=== PATIENT | female | born 1980 | race African-American/Black ===

== ENCOUNTER 2016-12-02 08:37 | Emergency (ER) | payer MEDICARE, MEDICAID ==
[2016-12-02] MEDS ORDERED: Fentanyl 100 MCG/2 ML VIAL ONE (09:17)
[2016-12-02] MEDS ORDERED: Ondansetron ODT 4 MG TAB ONE (09:17)
== END 2016-12-02 09:30 | disposition home or self-care (01) ==
LOC: MADERS 08:37
DX: K02.9 Dental caries, unspecified (principal); E11.9 Type 2 diabetes mellitus without complications; F32.9 Major depressive disorder, single episode, unspecified
CPT/HCPCS: 96372; J3010; Q0162

== ENCOUNTER 2016-12-13 08:50 | Emergency (ER) | payer MEDICARE, MEDICAID ==
--- NOTE | 2016-12-13 09:51 | RAD ---
PORTABLE CHEST 1 VIEW: DATE: 12/13/16. TIME: 9:33 a.m. HISTORY: Pain in the feet, legs, headache, and vomiting. FINDINGS: Comparison is made with the exam of 07/07/16. There is continued elevation of the right hemidiaphragm. The heart size is normal. There is mild p rominence of the pulmonary vascularity. No lobar consolidation, pneumothorax, or large effusions ar e seen. POS: [facility]
[2016-12-13 10:13] LABS: PTT 26.8 SEC (22.9-36.1); Prothrombin Time 13.2 SEC (12.0-14.7)
[2016-12-13 10:21] LABS: Band 1 % (5-11); Hemoglobin 14.8 g/dL (12.0-16.0); Lymphocytes 39 % (21-51); MDiff Complete? YES; Mean Corpuscular HGB CONC 32.8 g/dL (32.0-36.0); Mean Corpuscular Volume 91.7 fl (81.0-99.0); Mean Platelet Volume 7.4 fL (7.4-10.4); Monocytes 6 % (0-10); Neutrophil 54 % (42-75); Platelet Count 224 thou/uL (130-400); RBC Distribution Width 12.9 % (11.5-14.5); Red Blood Cell (RBC) Count 4.92 mill/uL (4.20-5.40); White Blood Cell (WBC) Count 10.4 thou/uL (4.8-10.8)
[2016-12-13 10:24] LABS: BHCG - Serum NEGATIVE (NEGATIVE); Pregs Control Background? CLEAR/WHITE (CLR/WHITE); Pregs Control Bar Appear? YES (CONTROL BAR)
[2016-12-13 10:55] LABS: Hemoglobin A1c 9.1 % (4.0-6.0)
[2016-12-13 11:24] LABS: Bilirubin Negative (Negative); Blood, Urine Large (Negative); Clarity Clear (Clear); Glucose, Urine (Dipstick) Negative (Negative); Leukocyte Negative (Negative); Nitrite Negative (Negative); Protein, Urine (Dipstick) Negative (Neg-Trace); Urobilinogen 0.2 mg/dL (0.2-1.0); pH, Urine 5.5 (5.0-9.0)
[2016-12-13 11:33] LABS: ALT (SGPT) 7 U/L (8-55); AST (SGOT) 13 U/L (5-34); Albumin 3.9 g/dL (3.5-5.0); Alkaline Phosphatase 81 U/L (40-150); Anion Gap 16 mmol/L (10-20); BUN (Urea Nitrogen) 12 mg/dL (7.0-18.7); Bilirubin, Total Less than 0.3 mg/dL (0.2-1.2); Calc. Creatinine Clearance 0 mL/min (70-130); Calcium 9.1 mg/dL (7.8-10.44); Carbon Dioxide 26 mmol/L (22-29); Chloride 103 mmol/L (98-107); Estimated GFR-MDRD 79; Globulin 3.2 g/dL (2.4-3.5); Glucose 107 mg/dL (70-105); Potassium 4.5 mmol/L (3.5-5.1); Protein, Total 7.1 g/dL (6.0-8.3); Sodium 140 mmol/L (136-145)
[2016-12-13 11:35] LABS: RBC/HPF 0-3 HPF (0-3); Specific Gravity, Urine 1.005 (1.002-1.036)
[2016-12-13 11:35] LABS: CRP (Inflammatory) 6.63 mg/dL (= or < 0.5)
[2016-12-13 11:36] LABS: Bacteria/HPF Rare-Few HPF (None Seen); Squamous Epithelial 0-3 HPF (0-3); WBC/HPF None Seen HPF (0-3)
[2016-12-13] MEDS ORDERED: Ondansetron ODT 4 MG TAB ONE (11:52)
[2016-12-13] MEDS ORDERED: methylPREDNISolone Acetate 40 mg/ml Vial ONE (13:21)
[2016-12-13] MEDS ORDERED: Morphine Sulfate 2 MG/ML SYRINGE ONE (13:21)
== END 2016-12-13 13:30 | disposition home or self-care (01) ==
LOC: MADERS 08:50
DX: M32.14 Glomerular disease in systemic lupus erythematosus (principal); M06.9 Rheumatoid arthritis, unspecified; E11.9 Type 2 diabetes mellitus without complications; F32.9 Major depressive disorder, single episode, unspecified; Z79.891 Long term (current) use of opiate analgesic; Z79.899 Other long term (current) drug therapy
CPT/HCPCS: 36415; 71010; 80053; 81001; 82150; 83036; 83605; 83690; 83880; 84443; 84703; 85025; 85610; 85730; 86140; 87040; 87086; 96372; J1030; J1040; J2270; Q0162

== ENCOUNTER 2017-09-14 19:01 | Emergency (ER) | payer MEDICARE, MEDICAID ==
[2017-09-14 19:40] LABS: #Basophils 0.2 thou/uL (0.0-0.2); #Eosinphils 0.2 thou/uL (0.0-0.7); #Lymphocytes 5.5 thou/uL (1.20-3.40); #Monocytes 0.7 thou/uL (0.11-0.59); %Basophils 1.6 % (0.0-1.0); %Eosinophils 1.4 % (0.0-10.0); %Lymphocytes 43.6 % (21.0-51.0); %Monocytes 5.7 % (0.0-10.0); %Neutrophils 47.7 % (42.0-75.0); Hemoglobin 14.2 g/dL (12.0-16.0); Mean Corpuscular HGB CONC 31.5 g/dL (32.0-36.0); Mean Corpuscular Hemoglobin 27.9 pg (27.0-31.0); Mean Corpuscular Volume 88.5 fl (81.0-99.0); Mean Platelet Volume 6.6 fL (7.4-10.4); Platelet Count 315 thou/uL (130-400); RBC Distribution Width 11.8 % (11.5-14.5); White Blood Cell (WBC) Count 12.6 thou/uL (4.8-10.8)
[2017-09-14 19:48] LABS: PTT 26.3 SEC (22.9-36.1)
--- NOTE | 2017-09-14 19:48 | RAD ---
PORTABLE CHEST: 09/14/17 HISTORY: Chest pain. COMPARISON: 12/20/16. Elevated right hemidiaphragm again noted. Linear atelectasis in the right lower lung is similar in ap pearance to the prior exam. Lungs otherwise appear clear and unchanged in appearance. Heart size is u pper normal and table. IMPRESSION: Elevated right hemidiaphragm with linear atelectatic changes in the right lower lung extending from t he hilum have a similar appearance to the prior study. No acute interval change. POS: [facility]
[2017-09-14 19:49] LABS: Prothrombin Time 13.4 SEC (12.0-14.7)
[2017-09-14 19:52] LABS: D-Dimer Test Less than 0.27 *mcg/mL (0.27-0.43)
[2017-09-14 19:57] LABS: ALT (SGPT) 29 U/L (8-55); AST (SGOT) 18 U/L (5-34); Albumin 4.2 g/dL (3.5-5.0); Alkaline Phosphatase 77 U/L (40-150); Anion Gap 14 mmol/L (10-20); BUN (Urea Nitrogen) 17 mg/dL (7.0-18.7); Bilirubin, Total 0.6 mg/dL (0.2-1.2); CK (CPK) 148 U/L (29-168); Calc. Creatinine Clearance 0 mL/min (70-130); Calcium 9.5 mg/dL (7.8-10.44); Carbon Dioxide 25 mmol/L (22-29); Chloride 106 mmol/L (98-107); Estimated GFR-MDRD 89; Globulin 3.1 g/dL (2.4-3.5); Glucose 106 mg/dL (70-105); Potassium 3.4 mmol/L (3.5-5.1); Protein, Total 7.3 g/dL (6.0-8.3); Sodium 142 mmol/L (136-145)
[2017-09-14 19:59] LABS: Troponin I Less than 0.010 ng/mL (< 0.028)
[2017-09-14 20:21] LABS: Pregnancy Test - Urine (BHCG) Negative (Negative); Pregu Control Background? CLEAR/WHITE (CLR/WHITE); Pregu Control Bar Appear? YES (CONTROL BAR)
[2017-09-14 20:28] LABS: Bilirubin Small (Negative); Blood, Urine Trace (Negative); Glucose, Urine (Dipstick) Negative (Negative); Leukocyte Small (Negative); Nitrite Negative (Negative); Protein, Urine (Dipstick) 30 mg/dL (Neg-Trace); pH, Urine 5.5 (5.0-9.0)
[2017-09-14 20:33] LABS: Clarity Slightly Cloudy (Clear); Specific Gravity, Urine 1.031 (1.002-1.036)
[2017-09-14 20:37] LABS: Bacteria/HPF 2+ HPF (None Seen); RBC/HPF 0-3 HPF (0-3)
== END 2017-09-14 20:36 | disposition home or self-care (01) ==
LOC: MADERS 19:01
DX: J06.9 Acute upper respiratory infection, unspecified (principal); E11.9 Type 2 diabetes mellitus without complications; F32.9 Major depressive disorder, single episode, unspecified
CPT/HCPCS: 36415; 71045; 80053; 81003; 81015; 81025; 82550; 82553; 83880; 84484; 85025; 85379; 85610; 85730; 93005; 94760

== ENCOUNTER 2018-01-22 16:28 | Emergency (ER) | payer MEDICARE, OTHER ==
[~2018-01-22 16:28] MED LIST: Sodium Chloride Irrig Solution 250 ML BOT ONE
[2018-01-22] MEDS ORDERED: Lidocaine 1% w/Epinephrine 1:100K 20 ML VIAL ONE (17:39)
[2018-01-22] MEDS ORDERED: HYDROcodone/Acetaminophen 10/325 mg Tablet ONE (18:49)
== END 2018-01-22 18:55 | disposition home or self-care (01) ==
LOC: MADERS 16:28
DX: L73.2 Hidradenitis suppurativa (principal); F32.9 Major depressive disorder, single episode, unspecified; M06.9 Rheumatoid arthritis, unspecified; Z79.899 Other long term (current) drug therapy; Z79.84 Long term (current) use of oral hypoglycemic drugs; Z79.82 Long term (current) use of aspirin
CPT/HCPCS: 10061; 87070; 87077; 87186; 87205; J2001

== ENCOUNTER 2018-05-19 13:20 | Emergency (ER) | payer MEDICARE, MEDICAID ==
[2018-05-19] MEDS ORDERED: Ketorolac Tromethamine 60 MG/2 ML VIAL ONE ×2 (14:00→14:10)
[2018-05-19] MEDS ORDERED: HYDROcodone/Acetaminophen 10/325 mg Tablet ONE (14:00)
[2018-05-19] MEDS ORDERED: Dexamethasone 4 MG TAB ONE ×2 (14:00→14:10)
[2018-05-19] MEDS ORDERED: Acetaminophen 325 MG TAB ONE ×2 (14:00→14:10)
[2018-05-19] MEDS ORDERED: HYDROcodone/Acetaminophen 5/325 mg Tablet ONE (14:09)
[2018-05-19] MEDS ORDERED: diphenhydrAMINE 25 MG CAP ONE (14:46)
[2018-05-19] MEDS ORDERED: Metoclopramide HCl 10 MG TAB ONE (14:47)
== END 2018-05-19 14:56 | disposition home or self-care (01) ==
LOC: MADERS 13:20
DX: M32.9 Systemic lupus erythematosus, unspecified (principal); E10.9 Type 1 diabetes mellitus without complications; K21.9 Gastro-esophageal reflux disease without esophagitis; F17.210 Nicotine dependence, cigarettes, uncomplicated; Z79.82 Long term (current) use of aspirin; Z79.899 Other long term (current) drug therapy; Z79.84 Long term (current) use of oral hypoglycemic drugs
CPT/HCPCS: 96372; J1885; J8540

== ENCOUNTER 2018-05-20 11:16 | Emergency (ER) | payer MEDICARE, MEDICAID ==
[2018-05-20] MEDS ORDERED: Ibuprofen 800 MG TAB ONE (12:34)
[2018-05-20] MEDS ORDERED: traMADol HCl 50 MG TAB ONE (12:34)
[2018-05-20] MEDS ORDERED: HYDROcodone/Acetaminophen 5/325 mg Tablet ONE (12:46)
== END 2018-05-20 13:19 | disposition home or self-care (01) ==
LOC: MADERS 11:16
DX: M32.9 Systemic lupus erythematosus, unspecified (principal); E10.9 Type 1 diabetes mellitus without complications; K21.9 Gastro-esophageal reflux disease without esophagitis; F17.210 Nicotine dependence, cigarettes, uncomplicated; Z79.899 Other long term (current) drug therapy; Z79.82 Long term (current) use of aspirin; Z79.4 Long term (current) use of insulin
CPT/HCPCS: 99283

== ENCOUNTER 2018-08-19 10:36 | Emergency (ER) | payer MEDICARE, MEDICAID ==
[2018-08-19] MEDS ORDERED: Dexamethasone 4 MG TAB ONE (11:20)
[2018-08-19] MEDS ORDERED: Ketorolac Tromethamine 60 MG/2 ML VIAL ONE (11:20)
== END 2018-08-19 11:34 | disposition home or self-care (01) ==
LOC: MADERS 10:36
DX: L93.0 Discoid lupus erythematosus (principal); F32.9 Major depressive disorder, single episode, unspecified; K21.9 Gastro-esophageal reflux disease without esophagitis; E10.9 Type 1 diabetes mellitus without complications; F17.210 Nicotine dependence, cigarettes, uncomplicated; Z79.899 Other long term (current) drug therapy; Z79.82 Long term (current) use of aspirin; M19.90 Unspecified osteoarthritis, unspecified site; Z86.718 Personal history of other venous thrombosis and embolism
CPT/HCPCS: 96372; J1885; J8540

== ENCOUNTER 2018-09-10 19:09 | Emergency (ER) | payer MEDICARE, OTHER ==
[2018-09-10] MEDS ORDERED: Promethazine HCl 25 MG/ML VIAL ONE (19:39)
[2018-09-10] MEDS ORDERED: diphenhydrAMINE 50 MG/ML VIAL ONE (19:39)
[2018-09-10] MEDS ORDERED: methylPREDNISolone Sod Succ/PF 125 MG/2 ML VIAL ONE (19:39)
[2018-09-10] MEDS ORDERED: Sodium Chloride 0.9% 1,000 ML ONE (19:39)
[2018-09-10] MEDS ORDERED: Ketorolac Tromethamine 30 MG/ML VIAL ONE (20:21)
== END 2018-09-10 20:58 | disposition home or self-care (01) ==
LOC: MADERS 19:09
DX: R51 Headache (principal); E10.9 Type 1 diabetes mellitus without complications; I49.9 Cardiac arrhythmia, unspecified; F32.9 Major depressive disorder, single episode, unspecified; F17.210 Nicotine dependence, cigarettes, uncomplicated; K21.9 Gastro-esophageal reflux disease without esophagitis; M06.9 Rheumatoid arthritis, unspecified; Z86.718 Personal history of other venous thrombosis and embolism; Z79.4 Long term (current) use of insulin; Z71.6 Tobacco abuse counseling; Z79.899 Other long term (current) drug therapy; Z79.82 Long term (current) use of aspirin; Z79.891 Long term (current) use of opiate analgesic
CPT/HCPCS: 96361; 96374; 96375; 99406; J1200; J1885; J2550; J2930; J7050

== ENCOUNTER 2018-12-16 11:14 | Emergency (ER) | payer MEDICARE, MEDICAID ==
[2018-12-16] MEDS ORDERED: Sodium Chloride 0.9% 1,000 ML ONE (11:36)
[2018-12-16] MEDS ORDERED: Ondansetron PF 4 MG/2 ML Vial ONE (11:36)
[2018-12-16] MEDS ORDERED: Loperamide HCl 2 MG CAP ONE (11:36)
[2018-12-16 11:54] LABS: Bilirubin Negative (Negative); Blood, Urine Negative (Negative); Glucose, Urine (Dipstick) 100 mg/dL (Negative); Leukocyte Trace (Negative); Nitrite Negative (Negative); Protein, Urine (Dipstick) Negative (Neg-Trace); Specific Gravity, Urine 1.025 (1.005-1.030); Urobilinogen 0.2 mg/dL (0.2-1.0)
[2018-12-16 11:55] LABS: Clarity Hazy (Clear)
[2018-12-16 12:02] LABS: Bacteria/HPF Rare-Few HPF (None Seen); RBC/HPF None Seen HPF (0-3); WBC/HPF 0-3 HPF (0-3)
[2018-12-16 12:32] LABS: #Basophils 0.2 thou/uL (0.0-0.2); #Eosinphils 0.3 thou/uL (0.0-0.7); #Monocytes 0.6 thou/uL (0.11-0.59); #Neutrophils 4.8 thou/uL (1.40-6.50); %Basophils 1.5 % (0.0-1.0); %Lymphocytes 40.7 % (21.0-51.0); %Monocytes 6.4 % (0.0-10.0); %Neutrophils 48.4 % (42.0-75.0); Hemoglobin 14.6 g/dL (12.0-16.0); Mean Corpuscular HGB CONC 32.8 g/dL (32.0-36.0); Mean Corpuscular Hemoglobin 28.1 pg (27.0-31.0); Mean Corpuscular Volume 85.8 fL (78.0-98.0); Mean Platelet Volume 6.2 fL (7.4-10.4); Platelet Count 267 thou/uL (130-400); RBC Distribution Width 12.2 % (11.5-14.5); Red Blood Cell (RBC) Count 5.21 mill/uL (4.20-5.40); White Blood Cell (WBC) Count 9.8 thou/uL (4.8-10.8)
[2018-12-16 12:40] LABS: BHCG - Serum Negative (NEGATIVE); Pregs Control Background? CLEAR/WHITE (CLR/WHITE); Pregs Control Bar Appear? YES (CONTROL BAR)
[2018-12-16 12:51] LABS: ALT (SGPT) 23 U/L (8-55); AST (SGOT) 16 U/L (5-34); Albumin 3.9 g/dL (3.5-5.0); Alkaline Phosphatase 83 U/L (40-150); Anion Gap 11 mmol/L (10-20); BUN (Urea Nitrogen) 11 mg/dL (7.0-18.7); Bilirubin, Total 0.7 mg/dL (0.2-1.2); Calc. Creatinine Clearance 0 mL/min (70-130); Calcium 8.7 mg/dL (7.8-10.44); Carbon Dioxide 22 mmol/L (22-29); Chloride 111 mmol/L (98-107); Estimated GFR-MDRD Greater than 90; Globulin 2.8 g/dL (2.4-3.5); Glucose 132 mg/dL (70-105); Lipase 25 U/L (8-78); Potassium 3.7 mmol/L (3.5-5.1); Protein, Total 6.7 g/dL (6.0-8.3); Sodium 140 mmol/L (136-145)
== END 2018-12-16 13:50 | disposition home or self-care (01) ==
LOC: MADERS 11:14
DX: R11.2 Nausea with vomiting, unspecified (principal); R19.7 Diarrhea, unspecified; I49.9 Cardiac arrhythmia, unspecified; K21.9 Gastro-esophageal reflux disease without esophagitis; M06.9 Rheumatoid arthritis, unspecified; F32.9 Major depressive disorder, single episode, unspecified; F17.210 Nicotine dependence, cigarettes, uncomplicated; E10.9 Type 1 diabetes mellitus without complications; Z86.718 Personal history of other venous thrombosis and embolism; Z79.899 Other long term (current) drug therapy; Z79.82 Long term (current) use of aspirin
CPT/HCPCS: 36415; 80053; 81003; 81015; 83690; 84703; 85025; 96361; 96374; J2405; J7050

== ENCOUNTER 2019-02-09 12:27 | Emergency (ER) | payer MEDICARE, MEDICAID ==
--- NOTE | 2019-02-09 13:20 | RAD ---
RADIOGRAPH CHEST 2 VIEWS: DATE: 02/09/2019 HISTORY: 38-year-old female with chest pain FINDINGS: There is no airspace density, pulmonary edema, pleural effusion, pneumothorax, or cardiomegaly. IMPRESSION: No acute cardiopulmonary findings.
== END 2019-02-09 13:30 | disposition home or self-care (01) ==
LOC: MADERS 12:27
DX: F43.22 Adjustment disorder with anxiety (principal); G47.00 Insomnia, unspecified
CPT/HCPCS: 71046; 93005

== ENCOUNTER 2019-04-21 21:50 | Emergency (ER) | payer MEDICARE, MEDICAID ==
[2019-04-21] MEDS ORDERED: Ketorolac Tromethamine 30 MG/ML VIAL ONE (22:08)
--- NOTE | 2019-04-21 22:40 | RAD ---
XR Lumbar Spine 2 Or 3 View HISTORY: Back injury COMPARISON: None. FINDINGS: Vertebral bodies are normal in height disc spaces appear well preserved. Pedicles are intac t. No spondylolisthesis. IMPRESSION: Unremarkable lumbar spine series.
[2019-04-21] MEDS ORDERED: HYDROcodone/Acetaminophen 10/325 mg Tablet ONE (22:55)
== END 2019-04-21 23:28 | disposition home or self-care (01) ==
LOC: MADERS 21:50
DX: S30.0XXA Contusion of lower back and pelvis, initial encounter (principal); I49.9 Cardiac arrhythmia, unspecified; E11.9 Type 2 diabetes mellitus without complications; Z79.4 Long term (current) use of insulin; E78.5 Hyperlipidemia, unspecified; E78.00 Pure hypercholesterolemia, unspecified; I10 Essential (primary) hypertension; M79.7 Fibromyalgia; M06.9 Rheumatoid arthritis, unspecified; G43.909 Migraine, unspecified, not intractable, without status migrainosus; F17.210 Nicotine dependence, cigarettes, uncomplicated; Z79.899 Other long term (current) drug therapy; Y04.2XXA Assault by strike against or bumped into by another person, initial encounter
CPT/HCPCS: 72100; 96374; J1885

== ENCOUNTER 2019-06-30 17:05 | Emergency (ER) | payer MEDICARE, OTHER ==
[2019-06-30] MEDS ORDERED: Ibuprofen 800 MG TAB ONE (17:34)
== END 2019-06-30 18:10 | disposition home or self-care (01) ==
LOC: MADERS 17:05
DX: J11.1 Influenza due to unidentified influenza virus with other respiratory manifestations (principal); I49.9 Cardiac arrhythmia, unspecified; E78.00 Pure hypercholesterolemia, unspecified; E78.5 Hyperlipidemia, unspecified; G43.909 Migraine, unspecified, not intractable, without status migrainosus; F17.210 Nicotine dependence, cigarettes, uncomplicated; E11.9 Type 2 diabetes mellitus without complications; I10 Essential (primary) hypertension; Z79.4 Long term (current) use of insulin; Z79.899 Other long term (current) drug therapy
CPT/HCPCS: 99283

== ENCOUNTER 2019-07-08 08:42 | Emergency (ER) | payer MEDICARE, OTHER ==
--- NOTE | 2019-07-08 09:40 | RAD ---
XR Chest Pa Lat STANDARD HISTORY: Cough COMPARISON: 02/09/2019 FINDINGS: The heart size is normal. The lungs are well expanded without focal areas of consolidation, pneumothorax or pleural effusions. IMPRESSION: No radiographic evidence of acute cardiopulmonary process.
== END 2019-07-08 10:28 | disposition home or self-care (01) ==
LOC: MADERS 08:42
DX: R05 Cough (principal); I49.9 Cardiac arrhythmia, unspecified; E11.9 Type 2 diabetes mellitus without complications; Z79.4 Long term (current) use of insulin; E78.5 Hyperlipidemia, unspecified; E78.00 Pure hypercholesterolemia, unspecified; I10 Essential (primary) hypertension; M79.7 Fibromyalgia; M06.9 Rheumatoid arthritis, unspecified; G43.909 Migraine, unspecified, not intractable, without status migrainosus; Z79.899 Other long term (current) drug therapy; Z79.891 Long term (current) use of opiate analgesic; Z79.82 Long term (current) use of aspirin
CPT/HCPCS: 71046; 87804

== ENCOUNTER 2019-09-03 17:19 | Emergency (ER) | payer MEDICARE, OTHER ==
[2019-09-03] MEDS ORDERED: Ketorolac Tromethamine 60 MG/2 ML VIAL ONE (17:42)
[2019-09-03] MEDS ORDERED: Dexamethasone 4 MG TAB ONE (17:42)
== END 2019-09-03 18:05 | disposition home or self-care (01) ==
LOC: MADERS 17:19
DX: M25.50 Pain in unspecified joint (principal); M79.7 Fibromyalgia; M06.9 Rheumatoid arthritis, unspecified; I49.9 Cardiac arrhythmia, unspecified; E11.9 Type 2 diabetes mellitus without complications; I10 Essential (primary) hypertension; E78.5 Hyperlipidemia, unspecified; E78.00 Pure hypercholesterolemia, unspecified; G43.909 Migraine, unspecified, not intractable, without status migrainosus; Z87.891 Personal history of nicotine dependence; Z79.4 Long term (current) use of insulin; Z79.82 Long term (current) use of aspirin; Z79.899 Other long term (current) drug therapy
CPT/HCPCS: 96372; 99283; J1885; J8540

== ENCOUNTER 2019-09-08 16:19 | Emergency (ER) | payer MEDICARE, OTHER ==
[2019-09-08 16:48] LABS: Bilirubin Negative (Negative); Blood, Urine Large (Negative); Glucose, Urine (Dipstick) >=1000 mg/dL (Negative); Leukocyte Negative (Negative); Nitrite Negative (Negative); Protein, Urine (Dipstick) Negative (Neg-Trace); Urobilinogen 0.2 mg/dL (Less than 2)
[2019-09-08 16:49] LABS: Clarity Cloudy (Clear)
[2019-09-08 16:51] LABS: RBC/HPF Greater than 50 HPF (0-3)
[2019-09-08 16:52] LABS: Bacteria/HPF Rare-Few HPF (None Seen); Squamous Epithelial 0-3 HPF (0-3); WBC/HPF 0-3 HPF (0-3)
[2019-09-08 17:17] LABS: Eosinophils 5 % (0-10); Hemoglobin 15.3 g/dL (12.0-16.0); Lymphocytes 22 % (21-51); MDiff Complete? YES; Mean Corpuscular HGB CONC 30.3 g/dL (32.0-36.0); Mean Corpuscular Hemoglobin 26.6 pg (27.0-31.0); Mean Corpuscular Volume 87.5 fL (78.0-98.0); Mean Platelet Volume 6.6 fL (7.4-10.4); Monocytes 1 % (0-10); Neutrophil 45 % (42-75); Platelet Count 345 thou/uL (130-400); Platelet Morphology Comment 54384; RBC Distribution Width 12.1 % (11.5-14.5); RBC Morphology Normal; Reactive Lymphocytes 27 % (0-10); Red Blood Cell (RBC) Count 5.76 mill/uL (4.20-5.40); White Blood Cell (WBC) Count 15.7 thou/uL (4.8-10.8)
[2019-09-08 17:21] LABS: ALT (SGPT) 51 U/L (8-55); AST (SGOT) 15 U/L (5-34); Alkaline Phosphatase 97 U/L (40-110); Anion Gap 20 mmol/L (10-20); BUN (Urea Nitrogen) 9 mg/dL (7.0-18.7); Bilirubin, Total 0.4 mg/dL (0.2-1.2); Calc. Creatinine Clearance 0 mL/min (70-130); Calcium 8.9 mg/dL (7.8-10.44); Carbon Dioxide 18 mmol/L (22-29); Chloride 99 mmol/L (98-107); Estimated GFR-MDRD 79; Globulin 3.1 g/dL (2.4-3.5); Glucose 531 mg/dL (70-105); Magnesium 1.9 mg/dL (1.6-2.6); Potassium 3.5 mmol/L (3.5-5.1); Protein, Total 7.1 g/dL (6.0-8.3); Sodium 133 mmol/L (136-145)
[2019-09-08 18:16] LABS: Glucose 537 mg/dL (70-105)
[2019-09-08] MEDS ORDERED: Insulin Regular 300 UNITS/3 ML VIAL ONE (18:21)
[2019-09-08] MEDS ORDERED: SUMAtriptan Succinate 6 MG/0.5 ML VIAL ONE (18:21)
[2019-09-08] MEDS ORDERED: Sodium Chloride 0.9% 2,000 ML ONE (18:21)
[2019-09-08] MEDS ORDERED: Sodium Chloride 0.9% 1,000 ML ONE (18:23)
== END 2019-09-08 19:25 | disposition home or self-care (01) ==
LOC: MADERS 16:19
DX: E11.65 Type 2 diabetes mellitus with hyperglycemia (principal); I49.9 Cardiac arrhythmia, unspecified; E78.5 Hyperlipidemia, unspecified; E78.00 Pure hypercholesterolemia, unspecified; I10 Essential (primary) hypertension; M79.7 Fibromyalgia; G43.909 Migraine, unspecified, not intractable, without status migrainosus; M06.9 Rheumatoid arthritis, unspecified; Z87.891 Personal history of nicotine dependence; Z79.4 Long term (current) use of insulin; Z79.899 Other long term (current) drug therapy
CPT/HCPCS: 36416; 80053; 81003; 81015; 83735; 85025; 96360; 96361; J1815; J3030; J7050

== ENCOUNTER 2019-09-23 16:40 | Emergency (ER) | payer MEDICARE, OTHER, MEDICAID ==
[2019-09-23] MEDS ORDERED: Tetracaine 0.5% OPHTH SOLN/PF 4 ML BOT ONE (17:30)
[2019-09-23] MEDS ORDERED: Fluorescein Opthalmic Strip ONE (17:30)
== END 2019-09-23 18:10 | disposition home or self-care (01) ==
LOC: MADERS 16:40
DX: H10.9 Unspecified conjunctivitis (principal); I49.9 Cardiac arrhythmia, unspecified; E11.9 Type 2 diabetes mellitus without complications; E78.5 Hyperlipidemia, unspecified; E78.00 Pure hypercholesterolemia, unspecified; I10 Essential (primary) hypertension; M06.9 Rheumatoid arthritis, unspecified; G43.909 Migraine, unspecified, not intractable, without status migrainosus; M79.7 Fibromyalgia; Z79.4 Long term (current) use of insulin; Z87.891 Personal history of nicotine dependence; Z79.899 Other long term (current) drug therapy
CPT/HCPCS: 99282

== ENCOUNTER 2019-12-19 12:02 | Emergency (ER) | payer MEDICARE, OTHER ==
[2019-12-19 12:42] LABS: #Basophils 0.2 thou/uL (0.0-0.2); #Eosinphils 0.4 thou/uL (0.0-0.7); #Lymphocytes 4.9 thou/uL (1.20-3.40); #Monocytes 0.7 thou/uL (0.11-0.59); #Neutrophils 5.3 thou/uL (1.40-6.50); %Basophils 1.5 % (0.0-1.0); %Eosinophils 3.6 % (0.0-10.0); %Lymphocytes 42.5 % (21.0-51.0); %Monocytes 6.4 % (0.0-10.0); %Neutrophils 45.9 % (42.0-75.0); Hemoglobin 14.6 g/dL (12.0-16.0); Mean Corpuscular HGB CONC 31.5 g/dL (32.0-36.0); Mean Corpuscular Hemoglobin 27.7 pg (27.0-31.0); Mean Corpuscular Volume 87.7 fL (78.0-98.0); Mean Platelet Volume 7.1 fL (7.4-10.4); Platelet Count 311 thou/uL (130-400); RBC Distribution Width 12.8 % (11.5-14.5); Red Blood Cell (RBC) Count 5.29 mill/uL (4.20-5.40); White Blood Cell (WBC) Count 11.5 thou/uL (4.8-10.8)
[2019-12-19 12:47] LABS: Bilirubin Negative (Negative); Blood, Urine Negative (Negative); Clarity Slightly Cloudy (Clear); Glucose, Urine (Dipstick) >=1000 mg/dL (Negative); Leukocyte Negative (Negative); Nitrite Negative (Negative); Protein, Urine (Dipstick) Negative (Neg-Trace)
[2019-12-19 12:55] LABS: ALT (SGPT) 27 U/L (8-55); AST (SGOT) 15 U/L (5-34); Albumin 3.9 g/dL (3.5-5.0); Alkaline Phosphatase 79 U/L (40-110); Anion Gap 12 mmol/L (10-20); BUN (Urea Nitrogen) 10 mg/dL (7.0-18.7); Bilirubin, Total 0.4 mg/dL (0.2-1.2); Calc. Creatinine Clearance 0 mL/min (70-130); Calcium 8.9 mg/dL (7.8-10.44); Carbon Dioxide 26 mmol/L (22-29); Chloride 105 mmol/L (98-107); Estimated GFR-MDRD 74; Globulin 2.8 g/dL (2.4-3.5); Glucose 206 mg/dL (70-105); Potassium 3.9 mmol/L (3.5-5.1); Protein, Total 6.7 g/dL (6.0-8.3); Sodium 139 mmol/L (136-145)
[2019-12-19] MEDS ORDERED: Dexamethasone 4 MG TAB ONE (13:30)
--- NOTE | 2019-12-19 15:59 | RAD ---
TWO VIEW CHEST: 12/19/19 INDICATIONS: Chest pain. COMPARISON: 07/08/19. Linear stranding or atelectasis in the right mid lung. No infiltrate or effusion. Heart and mediastin um unremarkable. IMPRESSION: Stranding in the right mid lung suggests mild subsegmental atelectasis. Chest otherwise unremarkable. POS: [facility]
== END 2019-12-19 13:40 | disposition home or self-care (01) ==
LOC: MADERS 12:02
DX: R07.89 Other chest pain (principal); R10.2 Pelvic and perineal pain; F41.9 Anxiety disorder, unspecified; F32.9 Major depressive disorder, single episode, unspecified; F17.210 Nicotine dependence, cigarettes, uncomplicated; E78.00 Pure hypercholesterolemia, unspecified; E78.5 Hyperlipidemia, unspecified
CPT/HCPCS: 71046; 80053; 81003; 83880; 84484; 85025; 93005; J8540

== ENCOUNTER 2020-01-07 12:58 | Emergency (ER) | payer MEDICARE, MEDICAID, OTHER ==
--- NOTE | 2020-01-07 14:23 | RAD ---
CHEST 1 VIEW: Date: 01/07/2020 INDICATION: History of cough. COMPARISON: Prior exam dated 03/20/2020. FINDINGS: Lungs are clear. Heart size is normal. No pleural effusion or pneumothorax is evident. No acute osseo us abnormality is noted. IMPRESSION: No acute cardiopulmonary abnormality. POS: [facility]
[2020-01-08 11:00] LABS: SARS-CoV-2 MS2 Positive; SARS-CoV-2 N Gene Negative; SARS-CoV-2 S Gene Negative; SARS-CoV-2 orf1ab Negative
== END 2020-01-07 14:35 | disposition home or self-care (01) ==
LOC: MADERS 12:58
DX: J20.9 Acute bronchitis, unspecified (principal); Z20.828 Contact with and (suspected) exposure to other viral communicable diseases; E11.9 Type 2 diabetes mellitus without complications; E78.5 Hyperlipidemia, unspecified; I10 Essential (primary) hypertension; G43.909 Migraine, unspecified, not intractable, without status migrainosus; F41.9 Anxiety disorder, unspecified; F32.9 Major depressive disorder, single episode, unspecified; F17.210 Nicotine dependence, cigarettes, uncomplicated; Z79.4 Long term (current) use of insulin; Z79.899 Other long term (current) drug therapy
CPT/HCPCS: 71045; 87081; 87430; 87635; 87804; U0003

== ENCOUNTER 2020-04-18 11:47 | Emergency (ER) | payer MEDICARE, MEDICAID ==
[2020-04-18] MEDS ORDERED: Ketorolac Tromethamine 60 MG/2 ML VIAL ONE (12:34)
[2020-04-18] MEDS ORDERED: Acetaminophen 325 MG TAB ONE (12:34)
[2020-04-18] MEDS ORDERED: HYDROcodone/Acetaminophen 10/325 mg Tablet ONE (12:34)
[2020-04-18] MEDS ORDERED: Cyclobenzaprine 10 MG TAB ONE (12:46)
== END 2020-04-18 13:15 | disposition home or self-care (01) ==
LOC: MADERS 11:47
DX: M62.830 Muscle spasm of back (principal); M54.5 Low back pain; G89.29 Other chronic pain; E11.9 Type 2 diabetes mellitus without complications; E78.5 Hyperlipidemia, unspecified; E78.00 Pure hypercholesterolemia, unspecified; I10 Essential (primary) hypertension; F41.9 Anxiety disorder, unspecified; F17.210 Nicotine dependence, cigarettes, uncomplicated; Z79.4 Long term (current) use of insulin; Z79.899 Other long term (current) drug therapy
CPT/HCPCS: 96372; 99283; J1885

== ENCOUNTER 2020-09-02 19:36 | Emergency (ER) | payer MEDICARE, OTHER, MEDICAID ==
[2020-09-02 21:10] LABS: Bilirubin Negative (Negative); Blood, Urine Negative (Negative); Clarity Clear (Clear); Glucose, Urine (Dipstick) >=1000 mg/dL (Negative); Ketone, Urine Negative (Negative); Leukocyte Negative (Negative); Nitrite Negative (Negative); Protein, Urine (Dipstick) Negative (Neg-Trace); Urobilinogen 0.2 mg/dL (Less than 2)
[2020-09-02 21:16] LABS: BHCG - Serum Negative (NEGATIVE); Pregs Control Background? CLEAR/WHITE (CLR/WHITE); Pregs Control Bar Appear? YES (CONTROL BAR)
[2020-09-02 21:21] LABS: Hemoglobin 16.1 g/dL (12.0-16.0); Lymphocytes 33 % (21-51); MDiff Complete? YES; Mean Corpuscular HGB CONC 31.5 g/dL (32.0-36.0); Mean Corpuscular Hemoglobin 27.5 pg (27.0-31.0); Mean Corpuscular Volume 87.4 fL (78.0-98.0); Mean Platelet Volume 6.3 fL (7.4-10.4); Monocytes 3 % (0-10); Neutrophil 63 % (42-75); Platelet Count 294 thou/uL (130-400); Platelet Morphology Comment Appears Adequate; RBC Distribution Width 12.1 % (11.5-14.5); RBC Morphology Normal; Red Blood Cell (RBC) Count 5.83 mill/uL (4.20-5.40); White Blood Cell (WBC) Count 9.7 thou/uL (4.8-10.8)
[2020-09-02] MEDS ORDERED: Dexamethasone 4 MG TAB ONE (21:49)
[2020-09-03 20:53] LABS: Chlamydia by PCR Not Detected (NotDetected); GC by PCR Not Detected (NotDetected)
== END 2020-09-02 21:58 | disposition home or self-care (01) ==
LOC: MADERS 19:36
DX: N93.8 Other specified abnormal uterine and vaginal bleeding (principal); L93.0 Discoid lupus erythematosus; E11.9 Type 2 diabetes mellitus without complications; I49.9 Cardiac arrhythmia, unspecified; Z79.4 Long term (current) use of insulin; E78.5 Hyperlipidemia, unspecified; E78.00 Pure hypercholesterolemia, unspecified; M06.9 Rheumatoid arthritis, unspecified; G43.909 Migraine, unspecified, not intractable, without status migrainosus; F17.210 Nicotine dependence, cigarettes, uncomplicated; Z79.01 Long term (current) use of anticoagulants; Z79.82 Long term (current) use of aspirin; Z79.899 Other long term (current) drug therapy
CPT/HCPCS: 36415; 51701; 81003; 84703; 85025; 87491; 87591; J8540

== ENCOUNTER 2020-11-17 09:38 | Emergency (ER) | payer MEDICARE, MEDICAID ==
[2020-11-17] MEDS ORDERED: Clindamycin 150 MG CAP ONE (10:00)
[2020-11-17] MEDS ORDERED: Acetaminophen/Codeine 30-300mg Tablet ONE (10:10)
== END 2020-11-17 10:10 | disposition home or self-care (01) ==
LOC: MADERS 09:38
DX: L03.317 Cellulitis of buttock (principal); I49.9 Cardiac arrhythmia, unspecified; E11.9 Type 2 diabetes mellitus without complications; Z79.4 Long term (current) use of insulin; E78.00 Pure hypercholesterolemia, unspecified; I10 Essential (primary) hypertension; M06.9 Rheumatoid arthritis, unspecified; G43.909 Migraine, unspecified, not intractable, without status migrainosus; E78.5 Hyperlipidemia, unspecified; F17.210 Nicotine dependence, cigarettes, uncomplicated; Z79.899 Other long term (current) drug therapy; Z79.01 Long term (current) use of anticoagulants; Z79.82 Long term (current) use of aspirin
CPT/HCPCS: 99283

== ENCOUNTER 2021-03-15 08:10 | Inpatient (IN) | payer MEDICARE, MEDICAID ==
[2021-03-15] MEDS ORDERED: Bacitracin 1 PK ONE (08:31)
[2021-03-15] MEDS ORDERED: Lidocaine 1% w/Epinephrine 1:100K 20 ML VIAL ONE (08:31)
[2021-03-15] MEDS ORDERED: Sodium Chloride 0.9% 1,000 ML ONE (08:52)
[2021-03-15] MEDS ORDERED: Sodium Chloride 0.9% 500 ML ONE (08:52)
[2021-03-15] MEDS ORDERED: Sodium Chloride 0.9% 100 ML ONE (08:52)
[2021-03-15] MEDS ORDERED: Cefepime 2 GM VIAL ONE (08:53)
[2021-03-15] MEDS ORDERED: Ondansetron PF 4 MG/2 ML Vial ONE (09:04)
[2021-03-15 09:15] LABS: Mean Corpuscular HGB CONC 30.4 g/dL (32.0-36.0); Mean Corpuscular Hemoglobin 27.1 pg (27.0-31.0); Mean Corpuscular Volume 89.3 fL (78.0-98.0); Mean Platelet Volume 9.4 fL (7.4-10.4); Platelet Count 246 thou/uL (130-400); Red Blood Cell (RBC) Count 6.26 mill/uL (4.20-5.40); White Blood Cell (WBC) Count 16.6 thou/uL (4.8-10.8)
[2021-03-15 09:17] LABS: BHCG - Serum Negative (NEGATIVE); Pregs Control Background? CLEAR/WHITE (CLR/WHITE); Pregs Control Bar Appear? YES (CONTROL BAR)
[2021-03-15 09:20] LABS: ALT (SGPT) 18 U/L (8-55); AST (SGOT) 13 U/L (5-34); Albumin 3.9 g/dL (3.5-5.0); Alkaline Phosphatase 132 U/L (40-110); Anion Gap 21 mmol/L (10-20); BUN (Urea Nitrogen) 5 mg/dL (7.0-18.7); Bilirubin, Total 0.8 mg/dL (0.2-1.2); Calc. Creatinine Clearance 0 mL/min (70-130); Calcium 9.5 mg/dL (7.8-10.44); Carbon Dioxide 20 mmol/L (22-29); Chloride 99 mmol/L (98-107); Globulin 3.6 g/dL (2.4-3.5); Glucose 418 mg/dL (70-105); Potassium 3.5 mmol/L (3.5-5.1); Protein, Total 7.5 g/dL (6.0-8.3); Sodium 136 mmol/L (136-145)
[2021-03-15 09:42] LABS: Bilirubin Negative (Negative); Blood, Urine Negative (Negative); Clarity Clear (Clear); Glucose, Urine (Dipstick) >=1000 mg/dL (Negative); Ketone, Urine 40 mg/dL (Negative); Leukocyte Negative (Negative); Nitrite Negative (Negative); Protein, Urine (Dipstick) Negative (Neg-Trace); Specific Gravity, Urine 1.015 (1.005-1.030); Urobilinogen 0.2 mg/dL (Less than 2)
[2021-03-15] MEDS ORDERED: Insulin Regular 300 UNITS/3 ML VIAL ONE (09:52)
[2021-03-15 09:53] LABS: Band 2 % (5-11); Eosinophils 1 % (0-10); Lymphocytes 16 % (21-51); MDiff Complete? YES; Monocytes 4 % (0-10); Neutrophil 77 % (42-75); Platelet Morphology Comment Appears Adequate; RBC Morphology Normal
[2021-03-15 09:56] LABS: Prothrombin Time 13.6 sec (12.0-14.7)
[2021-03-15 09:57] LABS: PTT 33.6 sec (22.9-36.1)
[2021-03-15] MEDS ORDERED: Acetaminophen 500 MG TAB ONE (10:06)
[2021-03-15 10:13] LABS: SARS-CoV-2 NAA Rapid Test Not Detected (NotDetected)
[2021-03-15] MEDS ORDERED: Ondansetron PF 4 MG/2 ML Vial IVP PRN (11:35)
[2021-03-15] MEDS ORDERED: Acetaminophen 500 MG TAB PO PRN ×2 (11:35→15:30)
[2021-03-15] MEDS ORDERED: Dextrose 50% Abboject 50 ML SYRINGE IVP PRN (11:45)
[2021-03-15] MEDS ORDERED: Sodium Chloride 0.9% 1,000 ML IV SCH ×3 (11:45→13:15)
[2021-03-15] MEDS ORDERED: Dextrose 5% in Water 1,000 ML IV PRN (11:45)
[2021-03-15] MEDS ORDERED: Vancomycin HCl 750 MG in Sodium Chloride 0.9% 250 ML 250 ML IVPB SCH (12:00)
[2021-03-15 12:05] VITALS: BMI 29.6
[2021-03-15 12:33] LABS: Lactic Acid 1.2 mmol/L (0.5-2.2)
[2021-03-15] MEDS ORDERED: Acetaminophen 325 MG TAB PO PRN (13:38)
[2021-03-15] MEDS ORDERED: Polyethylene Glycol 3350 17 GM Packet PO PRN (13:40)
[2021-03-15] MEDS ORDERED: DICLOFENAC EPOLAMINE TOP PRN (13:40)
[2021-03-15] MEDS ORDERED: [UNRECOGNIZED DRUG - OTHER] EA NARE PRN (13:40)
[2021-03-15] MEDS ORDERED: SUMATRIPTAN SUCCINATE 25 MG PO PRN (13:40)
[2021-03-15] MEDS: HumaLOG 300 UNITS/3 ML VIAL SC PRN ×3 (13:42→22:36)
[2021-03-15] MEDS ORDERED: Lantus 1000 UNITS/10 ML VIAL SC SCH (13:45)
[2021-03-15] MEDS ORDERED: Albuterol Sulfate 2.5 mg/3 ml Neb NEB PRN (14:44)
[2021-03-15] MEDS ORDERED: tiZANidine HCl 4 MG TAB PO PRN (15:04)
[2021-03-15] MEDS ORDERED: Nicotine 7 MG PATCH TD SCH (15:15)
[2021-03-15] MEDS: HYDROcodone/Acetaminophen 10/325 mg Tablet PO PRN ×2 (15:29→22:38)
[2021-03-15] MEDS: Gabapentin 300 MG CAP PO SCH ×2 (15:30→21:35)
[2021-03-15] MEDS: Cefepime 2 GM in Sodium Chloride 0.9% 100 ML IVPB SCH (19:54)
[2021-03-15] MEDS ORDERED: Apixaban 5 MG TAB PO SCH (21:00)
[2021-03-15] MEDS ORDERED: Cefepime 2 GM in Sodium Chloride 0.9% 100 ML IVPB SCH (21:00)
[2021-03-15] MEDS ORDERED: Vancomycin HCl 500 MG VIAL ONE (21:20)
[2021-03-15] MEDS ORDERED: Vancomycin HCl 750 MG VIAL ONE (21:20)
[2021-03-15] MEDS: Apixaban 5 MG TAB PO SCH (21:35)
[2021-03-15] MEDS: Prazosin HCl 1 MG CAP PO SCH (21:35)
[2021-03-15] MEDS: Atorvastatin Calcium 10 MG TAB PO SCH (21:35)
[2021-03-15] MEDS: Lantus 1000 UNITS/10 ML VIAL SC SCH (21:35)
[2021-03-15] MEDS: Vancomycin HCl 500 MG in Sodium Chloride 0.9% 100 ML IVPB SCH (21:35)
[2021-03-15] MEDS: CeleCOXIB 100 MG CAP PO SCH (21:35)
[2021-03-15] MEDS: Vancomycin HCl 750 MG in Sodium Chloride 0.9% 250 ML 250 ML IVPB SCH (21:35)
[2021-03-15] MEDS: OLANZapine 5 MG TAB PO SCH (21:35)
[2021-03-15] MEDS: clonazePAM 0.5 MG TAB PO SCH (22:05)
[2021-03-16 05:39] LABS: Anion Gap 13 mmol/L (10-20); BUN (Urea Nitrogen) 6 mg/dL (7.0-18.7); Band 4 % (5-11); Calc. Creatinine Clearance 157 mL/min (70-130); Calcium 8.2 mg/dL (7.8-10.44); Carbon Dioxide 22 mmol/L (22-29); Chloride 109 mmol/L (98-107); Eosinophils 4 % (0-10); Glucose 127 mg/dL (70-105); Lymphocytes 21 % (21-51); MDiff Complete? YES; Mean Corpuscular HGB CONC 30.9 g/dL (32.0-36.0); Mean Corpuscular Hemoglobin 27.4 pg (27.0-31.0); Mean Corpuscular Volume 88.8 fL (78.0-98.0); Mean Platelet Volume 8.7 fL (7.4-10.4); Monocytes 5 % (0-10); Neutrophil 64 % (42-75); Platelet Count 231 thou/uL (130-400); RBC Distribution Width 11.9 % (11.5-14.5); Reactive Lymphocytes 2 % (0-10); Red Blood Cell (RBC) Count 5.47 mill/uL (4.20-5.40); Sodium 141 mmol/L (136-145); White Blood Cell (WBC) Count 12.2 thou/uL (4.8-10.8)
[2021-03-16 05:43] LABS: Potassium 2.6 mmol/L (3.5-5.1)
[2021-03-16] MEDS ORDERED: Potassium Chloride 20 MEQ TAB PO SCH (06:15)
[2021-03-16] MEDS: Cefepime 2 GM in Sodium Chloride 0.9% 100 ML IVPB SCH ×2 (07:56→20:19)
[2021-03-16] MEDS: clonazePAM 0.5 MG TAB PO SCH ×2 (08:24→21:58)
[2021-03-16] MEDS: CeleCOXIB 100 MG CAP PO SCH ×2 (08:25→21:57)
[2021-03-16] MEDS: Aspirin 81 mg Enteric Coated Tablet PO SCH (08:25)
[2021-03-16] MEDS: Docusate 100 MG CAP PO SCH (08:27)
[2021-03-16] MEDS: Apixaban 5 MG TAB PO SCH ×2 (08:27→21:57)
[2021-03-16] MEDS: Venlafaxine HCl XR 150 MG CAP PO SCH (08:27)
[2021-03-16] MEDS: Gabapentin 300 MG CAP PO SCH ×3 (08:27→21:58)
[2021-03-16] MEDS: Nicotine 7 MG PATCH TD SCH (08:27)
[2021-03-16] MEDS: predniSONE 5 MG TAB PO SCH (08:27)
[2021-03-16] MEDS: Amlodipine 5 MG TAB PO SCH (08:28)
[2021-03-16] MEDS: Loratadine 10 MG TAB PO SCH (08:32)
[2021-03-16] MEDS: Lantus 1000 UNITS/10 ML VIAL SC SCH ×2 (08:33→21:59)
[2021-03-16] MEDS: Fluticasone Propionate Nasal Spray 16 gm Bottle NASAL SCH (08:33)
[2021-03-16] MEDS: Leflunomide 10 mg Tablet PO SCH (08:35)
[2021-03-16] MEDS: HYDROcodone/Acetaminophen 10/325 mg Tablet PO PRN ×2 (08:45→13:04)
[2021-03-16] MEDS: Vancomycin HCl 750 MG in Sodium Chloride 0.9% 250 ML 250 ML IVPB SCH ×2 (08:47→22:00)
[2021-03-16] MEDS ORDERED: AUTO INJCT IM SCH (09:00)
[2021-03-16] MEDS ORDERED: Non-Formulary Item 1 EACH (Leflunomide [Arava] 20 MG Tab) PO SCH (09:00)
[2021-03-16] MEDS ORDERED: ERENUMAB AOOE 70 MG/ML IM SCH (09:00)
[2021-03-16] MEDS ORDERED: Insulin Regular 300 UNITS/3 ML VIAL IVP SCH (10:00)
[2021-03-16] MEDS: Vancomycin HCl 500 MG in Sodium Chloride 0.9% 100 ML IVPB SCH (10:22)
[2021-03-16] MEDS: HumaLOG 300 UNITS/3 ML VIAL SC PRN ×2 (13:01→21:59)
[2021-03-16] MEDS ORDERED: Sulfameth/Trimethoprim DS 800-160mg TAB ONE (17:21)
[2021-03-16 20:47] LABS: Vancomycin, Trough 4.3 ug/mL
[2021-03-16] MEDS: Atorvastatin Calcium 10 MG TAB PO SCH (21:57)
[2021-03-16] MEDS ORDERED: Vancomycin HCl 500 MG in Sodium Chloride 0.9% 100 ML IVPB SCH (22:00)
[2021-03-16] MEDS: Vancomycin HCl 1 GM in Sodium Chloride 0.9% 250 ML 250 ML IVPB SCH (22:01)
[2021-03-16] MEDS: Prazosin HCl 1 MG CAP PO SCH (22:03)
[2021-03-16] MEDS: OLANZapine 5 MG TAB PO SCH (22:03)
[2021-03-16] MEDS ORDERED: Vancomycin HCl 750 MG in Sodium Chloride 0.9% 250 ML 250 ML IVPB SCH (23:00)
[2021-03-17 05:30] LABS: #Basophils 0.2 thou/uL (0.0-0.2); #Eosinphils 0.3 thou/uL (0.0-0.7); #Lymphocytes 3.8 thou/uL (1.20-3.40); #Monocytes 1.4 thou/uL (0.11-0.59); #Neutrophils 7.6 thou/uL (1.40-6.50); %Basophils 1.3 % (0.0-1.0); %Eosinophils 2.2 % (0.0-10.0); %Lymphocytes 28.7 % (21.0-51.0); %Monocytes 10.2 % (0.0-10.0); %Neutrophils 57.6 % (42.0-75.0); Hemoglobin 14.2 g/dL (12.0-16.0); Mean Corpuscular HGB CONC 30.9 g/dL (32.0-36.0); Mean Corpuscular Hemoglobin 27.4 pg (27.0-31.0); Mean Corpuscular Volume 88.6 fL (78.0-98.0); Mean Platelet Volume 8.4 fL (7.4-10.4); Platelet Count 239 thou/uL (130-400); RBC Distribution Width 11.9 % (11.5-14.5); White Blood Cell (WBC) Count 13.2 thou/uL (4.8-10.8)
[2021-03-17 05:47] LABS: Anion Gap 11 mmol/L (10-20); BUN (Urea Nitrogen) 6 mg/dL (7.0-18.7); Calc. Creatinine Clearance 162 mL/min (70-130); Calcium 8.5 mg/dL (7.8-10.44); Carbon Dioxide 22 mmol/L (22-29); Chloride 113 mmol/L (98-107); Glucose 96 mg/dL (70-105); Sodium 143 mmol/L (136-145)
[2021-03-17] MEDS: Vancomycin HCl 1 GM in Sodium Chloride 0.9% 250 ML 250 ML IVPB SCH ×3 (05:59→22:00)
[2021-03-17 06:06] LABS: Potassium 2.8 mmol/L (3.5-5.1)
[2021-03-17] MEDS ORDERED: Potassium Chloride 20 MEQ TAB PO SCH (06:30)
[2021-03-17] MEDS: Cefepime 2 GM in Sodium Chloride 0.9% 100 ML IVPB SCH ×2 (07:41→20:08)
[2021-03-17] MEDS: Potassium Chloride 20 MEQ TAB PO SCH (07:51)
[2021-03-17] MEDS: Leflunomide 10 mg Tablet PO SCH (09:17)
[2021-03-17] MEDS: clonazePAM 0.5 MG TAB PO SCH ×2 (09:19→20:28)
[2021-03-17] MEDS: CeleCOXIB 100 MG CAP PO SCH ×2 (09:20→20:28)
[2021-03-17] MEDS: Aspirin 81 mg Enteric Coated Tablet PO SCH (09:20)
[2021-03-17] MEDS: Venlafaxine HCl XR 150 MG CAP PO SCH (09:20)
[2021-03-17] MEDS: Apixaban 5 MG TAB PO SCH ×2 (09:20→20:27)
[2021-03-17] MEDS: Gabapentin 300 MG CAP PO SCH ×3 (09:21→20:29)
[2021-03-17] MEDS: Docusate 100 MG CAP PO SCH (09:21)
[2021-03-17] MEDS: predniSONE 5 MG TAB PO SCH (09:21)
[2021-03-17] MEDS: Loratadine 10 MG TAB PO SCH (09:21)
[2021-03-17] MEDS: Amlodipine 5 MG TAB PO SCH (09:22)
[2021-03-17] MEDS: HYDROcodone/Acetaminophen 10/325 mg Tablet PO PRN ×2 (09:28→20:27)
[2021-03-17] MEDS: Lantus 1000 UNITS/10 ML VIAL SC SCH ×2 (09:29→21:03)
[2021-03-17] MEDS: Fluticasone Propionate Nasal Spray 16 gm Bottle NASAL SCH (09:31)
[2021-03-17] MEDS: Nicotine 7 MG PATCH TD SCH (09:31)
[2021-03-17] MEDS: HumaLOG 300 UNITS/3 ML VIAL SC PRN ×3 (12:50→21:06)
[2021-03-17] MEDS: Atorvastatin Calcium 10 MG TAB PO SCH (20:28)
[2021-03-17] MEDS: Prazosin HCl 1 MG CAP PO SCH (20:30)
[2021-03-17] MEDS: OLANZapine 5 MG TAB PO SCH (20:31)
[2021-03-17 21:33] LABS: Vancomycin, Trough 8.2 ug/mL
[2021-03-17] MEDS: Vancomycin HCl 500 MG in Sodium Chloride 0.9% 100 ML IVPB SCH (22:01)
[2021-03-18] MEDS: Vancomycin HCl 1 GM in Sodium Chloride 0.9% 250 ML 250 ML IVPB SCH (05:30)
[2021-03-18] MEDS: Vancomycin HCl 500 MG in Sodium Chloride 0.9% 100 ML IVPB SCH (05:30)
[2021-03-18] MEDS: HYDROcodone/Acetaminophen 10/325 mg Tablet PO PRN ×2 (06:04→12:11)
[2021-03-18] MEDS: Venlafaxine HCl XR 150 MG CAP PO SCH (08:05)
[2021-03-18] MEDS: Amlodipine 5 MG TAB PO SCH (08:05)
[2021-03-18] MEDS: Apixaban 5 MG TAB PO SCH (08:05)
[2021-03-18] MEDS: Docusate 100 MG CAP PO SCH (08:05)
[2021-03-18] MEDS: Loratadine 10 MG TAB PO SCH (08:06)
[2021-03-18] MEDS: clonazePAM 0.5 MG TAB PO SCH (08:06)
[2021-03-18] MEDS: Potassium Chloride 20 MEQ TAB PO SCH (08:06)
[2021-03-18] MEDS: Aspirin 81 mg Enteric Coated Tablet PO SCH (08:06)
[2021-03-18] MEDS: predniSONE 5 MG TAB PO SCH (08:06)
[2021-03-18] MEDS: Nicotine 7 MG PATCH TD SCH (08:07)
[2021-03-18] MEDS: Leflunomide 10 mg Tablet PO SCH (08:11)
[2021-03-18] MEDS: Cefepime 2 GM in Sodium Chloride 0.9% 100 ML IVPB SCH (08:11)
[2021-03-18] MEDS: Lantus 1000 UNITS/10 ML VIAL SC SCH (08:18)
[2021-03-18] MEDS: Fluticasone Propionate Nasal Spray 16 gm Bottle NASAL SCH (08:27)
[2021-03-18] MEDS: Gabapentin 300 MG CAP PO SCH (08:30)
[2021-03-18] MEDS: CeleCOXIB 100 MG CAP PO SCH (08:30)
[2021-03-18] MEDS ORDERED: HumaLOG 300 UNITS/3 ML VIAL SC PRN (08:45)
[2021-03-18] MEDS ORDERED: ERENUMAB AOOE 70 MG/ML IM SCH (09:00)
[2021-03-18] MEDS ORDERED: AUTO INJCT IM SCH (09:00)
[2021-03-18 09:48] LABS: #Basophils 0.2 thou/uL (0.0-0.2); #Eosinphils 0.3 thou/uL (0.0-0.7); #Lymphocytes 4.1 thou/uL (1.20-3.40); #Monocytes 1.1 thou/uL (0.11-0.59); #Neutrophils 6.3 thou/uL (1.40-6.50); %Basophils 1.7 % (0.0-1.0); %Eosinophils 2.2 % (0.0-10.0); %Monocytes 8.8 % (0.0-10.0); %Neutrophils 53.3 % (42.0-75.0); Hemoglobin 14.6 g/dL (12.0-16.0); Mean Corpuscular HGB CONC 31.3 g/dL (32.0-36.0); Mean Corpuscular Hemoglobin 27.4 pg (27.0-31.0); Mean Corpuscular Volume 87.8 fL (78.0-98.0); Mean Platelet Volume 7.8 fL (7.4-10.4); Platelet Count 302 thou/uL (130-400); RBC Distribution Width 12.2 % (11.5-14.5); Red Blood Cell (RBC) Count 5.31 mill/uL (4.20-5.40); White Blood Cell (WBC) Count 11.9 thou/uL (4.8-10.8)
[2021-03-18 09:53] LABS: Anion Gap 12 mmol/L (10-20); BUN (Urea Nitrogen) 7 mg/dL (7.0-18.7); Calc. Creatinine Clearance 147 mL/min (70-130); Calcium 8.5 mg/dL (7.8-10.44); Carbon Dioxide 21 mmol/L (22-29); Chloride 111 mmol/L (98-107); Glucose 172 mg/dL (70-105); Potassium 3.3 mmol/L (3.5-5.1); Sodium 141 mmol/L (136-145)
[2021-03-18] MEDS ORDERED: Penicillin V Potassium 250 MG/5 ML Oral Solution PO SCH ×3 (10:57→21:00)
[2021-03-18] MEDS ORDERED: Penicillin V Potassium 250 MG TAB PO SCH ×2 (11:45→21:00)
[2021-03-18 12:01] VITALS: BP 126/85; TEMP 98.6
[2021-03-22] MEDS ORDERED: Etanercept [Enbrel Sureclick] 50 MG/ML Pen.Injctr SC SCH (09:00)
== END 2021-03-18 14:30 | disposition home or self-care (01) | DRG 603 ==
LOC: MADERS 08:10 → MADMS 10:35
PROVIDERS: ADMIT Family Medicine; ATTEND Family Medicine
DX: L03.314 Cellulitis of groin (principal); E87.2 Acidosis; R65.10 Systemic inflammatory response syndrome (SIRS) of non-infectious origin without acute organ dysfunction; M32.9 Systemic lupus erythematosus, unspecified; I10 Essential (primary) hypertension; M06.9 Rheumatoid arthritis, unspecified; G43.909 Migraine, unspecified, not intractable, without status migrainosus; G89.29 Other chronic pain; E78.2 Mixed hyperlipidemia; F17.210 Nicotine dependence, cigarettes, uncomplicated; E11.65 Type 2 diabetes mellitus with hyperglycemia; K21.9 Gastro-esophageal reflux disease without esophagitis; M79.7 Fibromyalgia; F32.9 Major depressive disorder, single episode, unspecified; E87.6 Hypokalemia; E78.00 Pure hypercholesterolemia, unspecified; F25.0 Schizoaffective disorder, bipolar type; F41.9 Anxiety disorder, unspecified; Z91.040 Latex allergy status; Z88.8 Allergy status to other drugs, medicaments and biological substances; Z86.718 Personal history of other venous thrombosis and embolism; Z86.711 Personal history of pulmonary embolism; Z79.51 Long term (current) use of inhaled steroids; Z79.82 Long term (current) use of aspirin; Z79.4 Long term (current) use of insulin; Z79.899 Other long term (current) drug therapy
CPT/HCPCS: 10060; 36416; 71045; 80048; 80053; 80202; 81003; 83605; 84703; 85025; 85610; 85730; 87040; 87070; 87077; 87149; 87186; 87205; 87804; 94760; 96365; 96367; 96375; 36415-59; J0692; J1815; J2405; J3370; J3490; J7030; J7050; J7512; U0002

== ENCOUNTER 2021-07-07 06:46 | Emergency (ER) | payer OTHER, MEDICARE, MEDICAID ==
[2021-07-07] MEDS ORDERED: Cyclobenzaprine 10 MG TAB ONE (08:16)
== END 2021-07-07 08:23 | disposition home or self-care (01) ==
LOC: MADERS 06:46
DX: S09.90XA Unspecified injury of head, initial encounter (principal); M54.50 Low back pain, unspecified; M54.2 Cervicalgia; E11.9 Type 2 diabetes mellitus without complications; I10 Essential (primary) hypertension; E78.5 Hyperlipidemia, unspecified; E78.00 Pure hypercholesterolemia, unspecified; M06.9 Rheumatoid arthritis, unspecified; K21.9 Gastro-esophageal reflux disease without esophagitis; F17.210 Nicotine dependence, cigarettes, uncomplicated; M32.9 Systemic lupus erythematosus, unspecified; M79.7 Fibromyalgia; K46.9 Unspecified abdominal hernia without obstruction or gangrene; W01.10XA Fall on same level from slipping, tripping and stumbling with subsequent striking against unspecified object, initial encounter; Y93.E1 Activity, personal bathing and showering; Z79.01 Long term (current) use of anticoagulants; Z79.82 Long term (current) use of aspirin; Z79.899 Other long term (current) drug therapy
CPT/HCPCS: 70450; 72125

== ENCOUNTER 2021-11-27 08:45 | Emergency (ER) | payer MEDICARE, MEDICAID ==
[2021-11-27] MEDS ORDERED: Piperacillin/Tazobactam 4.5 GM VIAL ONE (09:24)
[2021-11-27] MEDS ORDERED: Sodium Chloride 0.9% 100 ML ONE (09:24)
[2021-11-27] MEDS ORDERED: Sodium Chloride 0.9% 50 ML ONE (09:47)
[2021-11-27] MEDS ORDERED: Dexamethasone 10 MG/ML VIAL ONE (09:47)
[2021-11-27 10:00] LABS: ALT (SGPT) 50 U/L (8-55); AST (SGOT) 24 U/L (5-34); Albumin 4.1 g/dL (3.5-5.0); Alkaline Phosphatase 81 U/L (40-110); Anion Gap 19 mmol/L (10-20); BUN (Urea Nitrogen) 12 mg/dL (7.0-18.7); Bilirubin, Total 0.8 mg/dL (0.2-1.2); Calc. Creatinine Clearance 0 mL/min (70-130); Calcium 9.5 mg/dL (7.8-10.44); Carbon Dioxide 19 mmol/L (22-29); Chloride 104 mmol/L (98-107); Globulin 3.5 g/dL (2.4-3.5); Glucose 148 mg/dL (70-105); Protein, Total 7.6 g/dL (6.0-8.3); Sodium 138 mmol/L (136-145)
[2021-11-27 10:05] LABS: Band 1 % (5-11); Hemoglobin 18.6 g/dL (12.0-16.0); Lymphocytes 8 % (21-51); MDiff Complete? YES; Manual Diff?? YES; Mean Corpuscular HGB CONC 32.2 g/dL (32.0-36.0); Mean Corpuscular Hemoglobin 29.3 pg (27.0-31.0); Mean Corpuscular Volume 90.7 fL (78.0-98.0); Mean Platelet Volume 7.7 fL (7.4-10.4); Monocytes 4 % (0-10); Neutrophil 79 % (42-75); Platelet Count 272 thou/uL (130-400); Platelet Morphology Comment Appears Adequate; RBC Distribution Width 13.9 % (11.5-14.5); Reactive Lymphocytes 8 % (0-10); Red Blood Cell (RBC) Count 6.22 mill/uL (4.20-5.40); White Blood Cell (WBC) Count 17.2 thou/uL (4.8-10.8)
[2021-11-27] MEDS ORDERED: Iopamidol 370 76% 100 ML VIAL ONE (13:08)
== END 2021-11-27 10:00 | disposition short-term general hospital (02) ==
LOC: MADERS 08:45
DX: K12.2 Cellulitis and abscess of mouth (principal); E10.9 Type 1 diabetes mellitus without complications; E78.2 Mixed hyperlipidemia; I10 Essential (primary) hypertension; M06.9 Rheumatoid arthritis, unspecified; K21.9 Gastro-esophageal reflux disease without esophagitis; F17.210 Nicotine dependence, cigarettes, uncomplicated; Z79.899 Other long term (current) drug therapy; Z79.01 Long term (current) use of anticoagulants; Z79.82 Long term (current) use of aspirin
CPT/HCPCS: 36416; 70491; 71045; 80053; 83605; 85025; 87040; 94760; 96374; 96375; 36415-59; J1100; J2543; J3490; Q9967

== ENCOUNTER 2022-07-01 11:18 | Emergency (ER) | payer MEDICARE, MEDICAID ==
[~2022-07-01 11:18] MED LIST changes: +Iopamidol 370 76% 100 ML VIAL ONE; -Sodium Chloride Irrig Solution 250 ML BOT ONE
[2022-07-01 12:34] LABS: Hemoglobin 17.7 g/dL (12.0-16.0); Mean Corpuscular Hemoglobin 28.5 pg (27.0-31.0); Mean Corpuscular Volume 91.9 fl (78.0-98.0); Mean Platelet Volume 7.6 fL (7.4-10.4); Platelet Count 243 10x3/uL (130-400); White Blood Cell (WBC) Count 13.3 10x3/uL (4.8-10.8)
[2022-07-01 12:37] LABS: INR-International Normal Ratio 1.1; PTT 25.9 sec (22.9-36.1); Prothrombin Time 14.2 sec (12.0-14.7)
[2022-07-01 12:38] LABS: Bilirubin Negative (Negative); Blood, Urine Negative (Negative); Clarity Clear (Clear); Glucose, Urine (Dipstick) >=1000 mg/dL (Negative); Ketone, Urine Negative (Negative); Leukocyte Negative (Negative); Nitrite Negative (Negative); Protein, Urine (Dipstick) Negative (Neg-Trace); Urobilinogen 0.2 mg/dL (Less than 2)
[2022-07-01 12:47] LABS: ALT (SGPT) 27 U/L (8-55); AST (SGOT) 15 U/L (5-34); Albumin 3.8 g/dL (3.5-5.0); Alkaline Phosphatase 56 U/L (40-110); Anion Gap 16 mmol/L (10-20); BUN (Urea Nitrogen) 19 mg/dL (7.0-18.7); Bilirubin, Total 0.6 mg/dL (0.2-1.2); Calc. Creatinine Clearance 0 mL/min (70-130); Calcium 9.3 mg/dL (7.8-10.44); Carbon Dioxide 26 mmol/L (22-29); Chloride 106 mmol/L (98-107); Estimated GFR 57; Globulin 3.2 g/dL (2.4-3.5); Glucose 158 mg/dL (70-105); Potassium 3.5 mmol/L (3.5-5.1); Sodium 144 mmol/L (136-145)
[2022-07-01 12:57] LABS: Cocaine Metabolite Screen Not Detected (NotDetected); Phencyclidine (PCP) Not Detected (NotDetected); THC/Cannabinoid Screen Not Detected (NotDetected)
[2022-07-01 12:58] LABS: Amphetamine Not Detected (NotDetected); Barbiturates Screen Not Detected (NotDetected); Benzodiazepine Screen Not Detected (NotDetected); Medtox Control Line Valid? VALID (VALID); Methadone Not Detected (NotDetected); Methamphetamine Not Detected (NotDetected); Opiate Screen Detected (NotDetected); Oxycodone Screen Not Detected (NotDetected); Tricyclic Screen Detected (NotDetected)
[2022-07-01 13:03] LABS: Band 2 % (5-11); Eosinophils 1 % (0-10); Lymphocytes 13 % (21-51); MDiff Complete? YES; Monocytes 5 % (0-10); Neutrophil 76 % (42-75); Platelet Morphology Comment Appears Adequate; RBC Morphology Normal; Reactive Lymphocytes 3 % (0-10)
== END 2022-07-01 13:16 | disposition home or self-care (01) ==
LOC: MADERS 11:18
DX: S09.90XA Unspecified injury of head, initial encounter (principal); S30.0XXA Contusion of lower back and pelvis, initial encounter; S60.221A Contusion of right hand, initial encounter; S20.02XA Contusion of left breast, initial encounter; E11.9 Type 2 diabetes mellitus without complications; E78.00 Pure hypercholesterolemia, unspecified; I10 Essential (primary) hypertension; K21.9 Gastro-esophageal reflux disease without esophagitis; F17.210 Nicotine dependence, cigarettes, uncomplicated; Z79.899 Other long term (current) drug therapy; Z79.84 Long term (current) use of oral hypoglycemic drugs; Z79.4 Long term (current) use of insulin; W18.39XA Other fall on same level, initial encounter
CPT/HCPCS: 70450; 72125; 74177; 80053; 80306; 81003; 84443; 85025; 85610; 85730; Q9967

== ENCOUNTER 2022-07-10 14:08 | Emergency (ER) | payer OTHER ==
[~2022-07-10 14:08] MED LIST changes: -Iopamidol 370 76% 100 ML VIAL ONE; +Sodium Chloride 0.9% 500 ML BAG ONE
[2022-07-10] MEDS ORDERED: Silver Nitrate Application 1 EACH ONE ×2 (14:42)
[2022-07-10 15:15] LABS: Prothrombin Time 14.1 sec (12.0-14.7)
[2022-07-10 15:16] LABS: PTT 30.9 sec (22.9-36.1)
[2022-07-10 15:23] LABS: #Basophils 0.3 thou/uL (0.0-0.2); #Eosinphils 0.1 thou/uL (0.0-0.7); #Lymphocytes 2.6 thou/uL (1.20-3.40); #Monocytes 0.8 thou/uL (0.11-0.59); #Neutrophils 8.1 thou/uL (1.40-6.50); %Basophils 2.4 % (0.0-1.0); %Eosinophils 1.2 % (0.0-10.0); %Lymphocytes 21.9 % (21.0-51.0); %Monocytes 6.8 % (0.0-10.0); %Neutrophils 67.7 % (42.0-75.0); Mean Corpuscular HGB CONC 31.1 g/dL (32.0-36.0); Mean Corpuscular Hemoglobin 28.5 pg (27.0-31.0); Mean Corpuscular Volume 91.7 fl (78.0-98.0); Mean Platelet Volume 9.5 fL (7.4-10.4); Platelet Count 271 10x3/uL (130-400); RBC Distribution Width 13.2 % (11.5-14.5); Red Blood Cell (RBC) Count 6.66 mill/uL (4.20-5.40)
[2022-07-10 15:28] LABS: ALT (SGPT) 29 U/L (8-55); AST (SGOT) 17 U/L (5-34); Albumin 4.1 g/dL (3.5-5.0); Alkaline Phosphatase 69 U/L (40-110); Anion Gap 15 mmol/L (10-20); BUN (Urea Nitrogen) 15 mg/dL (7.0-18.7); Bilirubin, Total 0.5 mg/dL (0.2-1.2); CK (CPK) 88 U/L (29-168); Calc. Creatinine Clearance 0 mL/min (70-130); Calcium 10.2 mg/dL (7.8-10.44); Carbon Dioxide 23 mmol/L (22-29); Chloride 106 mmol/L (98-107); Estimated GFR 67; Globulin 3.2 g/dL (2.4-3.5); Glucose 133 mg/dL (70-105); Lipase 24 U/L (8-78); Protein, Total 7.3 g/dL (6.0-8.3); Sodium 139 mmol/L (136-145)
[2022-07-10 15:29] LABS: CKMB 3.2 ng/mL (0-6.6)
[2022-07-10] MEDS ORDERED: Nitroglycerin 0.4 MG TAB 1 EACH ONE (15:41)
[2022-07-10] MEDS ORDERED: Bacitracin 1 PK ONE ×2 (20:11→20:43)
[2022-07-10 21:49] LABS: Troponin I 0.026 ng/mL (< 0.028)
[2022-07-10] MEDS ORDERED: Acetaminophen 325 MG TAB ONE (21:54)
[2022-07-11] MEDS ORDERED: Morphine 4 MG/ML VIAL ONE (01:17)
[2022-07-11] MEDS ORDERED: Ondansetron PF 4 MG/2 ML Vial ONE (04:15)
[2022-07-11 04:22] LABS: Hemoglobin 17.8 g/dL (12.0-16.0); Platelet Count 233 10x3/uL (130-400)
[2022-07-11] MEDS ORDERED: Tranexamic Acid 1,000 MG/10 ML VIAL ONE (08:26)
[2022-07-11] MEDS ORDERED: HYDROcodone/Acetaminophen 5/325 mg Tablet ONE (08:26)
[2022-07-11] MEDS ORDERED: Amoxicillin/Potassium Clav 875 MG TAB ONE (08:26)
[2022-07-11] MEDS ORDERED: Sodium Chloride 0.9% 500 ML ONE ×2 (08:26→10:38)
[2022-07-11] MEDS ORDERED: Sodium Chloride 0.9% 100 ML ONE (08:28)
[2022-07-11 10:14] LABS: Hemoglobin 16.7 g/dL (12.0-16.0); Platelet Count 199 10x3/uL (130-400)
[2022-07-11] MEDS ORDERED: Oxymetazoline HCl 0.05% (30 ML BOT) ONE (15:21)
== END 2022-07-11 16:30 | disposition left against medical advice (07) ==
LOC: MADERS 14:08
DX: R04.0 Epistaxis (principal); R00.0 Tachycardia, unspecified; E11.9 Type 2 diabetes mellitus without complications; I10 Essential (primary) hypertension; E78.00 Pure hypercholesterolemia, unspecified; F17.210 Nicotine dependence, cigarettes, uncomplicated; Z79.899 Other long term (current) drug therapy; Z79.82 Long term (current) use of aspirin; Z79.01 Long term (current) use of anticoagulants; Z79.4 Long term (current) use of insulin
CPT/HCPCS: 30903; 36415; 36416; 71045; 80053; 82550; 82553; 83690; 83880; 84484; 85014; 85018; 85025; 85049; 85610; 85730; 93005; 96365; 96375; J7030

== ENCOUNTER 2023-04-22 12:46 | Emergency (ER) | payer OTHER ==
[2023-04-22] MEDS ORDERED: Morphine 4 MG/ML VIAL ONE (13:44)
[2023-04-22] MEDS ORDERED: Morphine 2 MG/ML VIAL ONE (13:44)
[2023-04-22] MEDS ORDERED: predniSONE 20 MG TAB ONE (13:45)
== END 2023-04-22 14:08 | disposition home or self-care (01) ==
LOC: MADERS 12:46
DX: M06.9 Rheumatoid arthritis, unspecified (principal); E11.9 Type 2 diabetes mellitus without complications; I10 Essential (primary) hypertension; E78.00 Pure hypercholesterolemia, unspecified; K21.9 Gastro-esophageal reflux disease without esophagitis; F17.210 Nicotine dependence, cigarettes, uncomplicated; Z79.899 Other long term (current) drug therapy; Z79.4 Long term (current) use of insulin
CPT/HCPCS: 96372; 99283; J2270; J2272; J7512

== ENCOUNTER 2023-10-20 15:26 | Emergency (ER) | payer MEDICARE, OTHER, MEDICAID ==
[2023-10-20] MEDS ORDERED: Ondansetron ODT 4 MG TAB ONE (16:41)
[2023-10-20] MEDS ORDERED: predniSONE 20 MG TAB ONE (16:41)
[2023-10-20] MEDS ORDERED: Morphine 10 MG/ML VIAL ONE (16:42)
== END 2023-10-20 17:17 | disposition home or self-care (01) ==
LOC: MADERS 15:26
DX: M32.10 Systemic lupus erythematosus, organ or system involvement unspecified (principal)
CPT/HCPCS: 96372; 99283; J2270; J7512; Q0162

== ENCOUNTER 2025-03-17 14:44 | Emergency (ER) | payer OTHER ==
[2025-03-17] MEDS ORDERED: Lidocaine 1%/Epinephrine 1:100K 10 ML VIAL ONE (15:39)
== END 2025-03-17 16:00 | disposition home or self-care (01) ==
LOC: MADERS 14:44
DX: N76.4 Abscess of vulva (principal); E11.9 Type 2 diabetes mellitus without complications; J44.9 Chronic obstructive pulmonary disease, unspecified; I50.9 Heart failure, unspecified; F17.210 Nicotine dependence, cigarettes, uncomplicated
CPT/HCPCS: 56405

== ENCOUNTER 2025-04-02 13:02 | Emergency (ER) | payer OTHER ==
[2025-04-02] MEDS ORDERED: Lidocaine 1% w/Epinephrine 1:100K 20 ML VIAL ONE (13:33)
== END 2025-04-02 14:35 | disposition home or self-care (01) ==
LOC: MADERS 13:02
DX: N76.4 Abscess of vulva (principal); L02.31 Cutaneous abscess of buttock; E11.9 Type 2 diabetes mellitus without complications; J44.9 Chronic obstructive pulmonary disease, unspecified; F17.210 Nicotine dependence, cigarettes, uncomplicated
CPT/HCPCS: 10060; 56405; 87070; 87205